=== PATIENT | female | born 1995 | race Asian ===

== ENCOUNTER 2016-11-15 16:05 | Emergency (ER) | payer OTHER ==
[~2016-11-15] VITALS: Ht 157.5 cm; Wt 43.5 kg
[~2016-11-15 16:05] MED LIST: LEVEMIR SC; NOVOLOG100 MG/ML SC
[2016-11-15] MEDS ORDERED: GABA300C2 PO (16:30)
[2016-11-15 17:46] LABS: PLATELET COUNT 322 K/uL (152-353)
[2016-11-15 17:49] LABS: POTASSIUM 2.9 mmol/L (3.6-5.2); SODIUM 138 mmol/L (136-145)
[2016-11-15 20:49] VITALS: BP 85/58; TEMP 98.4
== END 2016-11-15 20:53 | disposition home or self-care (01) ==
LOC: ED 16:05
PROVIDERS: Specialist
DX: E87.6 Hypokalemia (principal); E83.42 Hypomagnesemia; R42 Dizziness and giddiness; R11.10 Vomiting, unspecified; H54.40 Blindness, one eye, unspecified eye
CPT/HCPCS: 36415; 80053; 80307; 81000; 83735; 85027; 96365; 99284; G0479; J2550; J3475

== ENCOUNTER 2017-02-02 02:26 | Emergency (ER) | payer OTHER ==
[~2017-02-02] VITALS: Ht 157.5 cm; Wt 40.8 kg
[~2017-02-02 02:26] MED LIST changes: +GABA300C2 PO
[2017-02-02 02:30] VITALS: BP 101/77; TEMP 98.6
== END 2017-02-02 02:50 | disposition home or self-care (01) ==
LOC: ED 02:26
DX: M54.5 Low back pain (principal)
CPT/HCPCS: 99281

== ENCOUNTER 2017-11-07 13:18 | Emergency (ER) | payer OTHER ==
[~2017-11-07] VITALS: Ht 154.9 cm; Wt 43.5 kg
[2017-11-07 13:49] VITALS: TEMP 98.1
[2017-11-07 16:44] VITALS: BP 110/78
== END 2017-11-07 16:44 | disposition home or self-care (01) ==
LOC: ED 13:18
DX: M54.2 Cervicalgia (principal); S16.1XXA Strain of muscle, fascia and tendon at neck level, initial encounter; V43.12XA Car passenger injured in collision with other type car in nontraffic accident, initial encounter; Y92.89 Other specified places as the place of occurrence of the external cause
CPT/HCPCS: 99283

== ENCOUNTER 2017-11-29 09:44 | Outpatient (CLI) | payer OTHER | END 2017-11-29 09:48 | disposition short-term general hospital (02) | LOC: AMB 09:44 | DX: E11.649 Type 2 diabetes mellitus with hypoglycemia without coma (principal) | CPT/HCPCS: A0425; A0427 ==

== ENCOUNTER 2017-11-29 09:48 | Emergency (ER) | payer OTHER ==
[~2017-11-29] VITALS: Ht 154.9 cm; Wt 43.5 kg
[2017-11-29 10:20] LABS: PLATELET COUNT 315 K/uL (152-353)
[2017-11-29 10:48] LABS: POTASSIUM 3.4 mmol/L (3.6-5.2)
[2017-11-29 11:30] VITALS: BP 118/72
== END 2017-11-29 11:58 | disposition home or self-care (01) ==
LOC: ED 09:52
PROVIDERS: Family Medicine
DX: E11.649 Type 2 diabetes mellitus with hypoglycemia without coma (principal)
CPT/HCPCS: 80053; 81000; 82962; 85027; 96365; 99284

== ENCOUNTER 2018-07-06 01:02 | Emergency (ER) | payer OTHER ==
[~2018-07-06] VITALS: Ht 154.9 cm; Wt 52.2 kg
[2018-07-06 01:16] VITALS: BP 130/81; TEMP 98.7
== END 2018-07-06 02:00 | disposition home or self-care (01) ==
LOC: ED 01:02
DX: M54.89 Other dorsalgia (principal); R10.9 Unspecified abdominal pain
CPT/HCPCS: 99281

== ENCOUNTER 2018-11-02 07:34 | Outpatient (CLI) | payer OTHER | END 2018-11-02 07:40 | disposition short-term general hospital (02) | LOC: AMB 07:34 | DX: E11.649 Type 2 diabetes mellitus with hypoglycemia without coma (principal); Z79.4 Long term (current) use of insulin | CPT/HCPCS: A0425; A0427 ==

== ENCOUNTER 2018-11-02 07:41 | Emergency (ER) | payer OTHER ==
[~2018-11-02] VITALS: Ht 154.9 cm; Wt 55.3 kg
[2018-11-02 07:41] VITALS: TEMP 97
[2018-11-02 08:28] LABS: POTASSIUM 3.9 mmol/L (3.6-5.2)
[2018-11-02 08:30] LABS: PLATELET COUNT 321 K/uL (152-353)
[2018-11-02 09:29] VITALS: BP 128/82
== END 2018-11-02 09:29 | disposition home or self-care (01) ==
LOC: ED 07:42
PROVIDERS: Emergency Medicine
DX: E11.649 Type 2 diabetes mellitus with hypoglycemia without coma (principal); Z79.4 Long term (current) use of insulin
CPT/HCPCS: 80053; 81000; 82962; 83036; 85027; 87077; 87086; 87088; 87186; 99283

== ENCOUNTER 2018-11-17 10:36 | Outpatient (CLI) | payer OTHER | END 2018-11-17 10:40 | disposition short-term general hospital (02) | LOC: AMB 10:36 | DX: R41.82 Altered mental status, unspecified (principal); E11.649 Type 2 diabetes mellitus with hypoglycemia without coma | CPT/HCPCS: A0425; A0427 ==

== ENCOUNTER 2018-11-17 10:49 | Emergency (ER) | payer OTHER ==
[~2018-11-17] VITALS: Ht 154.9 cm; Wt 55.3 kg
[2018-11-17 10:50] VITALS: TEMP 97.7
[2018-11-17 11:31] LABS: PLATELET COUNT 270 K/uL (152-353)
[2018-11-17 11:47] LABS: POTASSIUM 3.8 mmol/L (3.6-5.2)
[2018-11-17 13:05] VITALS: BP 112/76
== END 2018-11-17 13:10 | disposition home or self-care (01) ==
LOC: ED 10:49
PROVIDERS: Family Medicine
DX: E11.649 Type 2 diabetes mellitus with hypoglycemia without coma (principal)
CPT/HCPCS: 80053; 80307; 81000; 85027; 99283

== ENCOUNTER 2018-12-13 08:05 | Emergency (ER) | payer OTHER ==
[~2018-12-13] VITALS: Ht 154.9 cm; Wt 55.3 kg
[2018-12-13 08:10] VITALS: TEMP 97.5
[2018-12-13 08:57] LABS: POTASSIUM 3.5 mmol/L (3.6-5.2)
[2018-12-13 09:05] LABS: PLATELET COUNT 290 K/uL (152-353)
[2018-12-13 10:23] VITALS: BP 128/62
== END 2018-12-13 10:23 | disposition home or self-care (01) ==
LOC: ED 08:05
PROVIDERS: Emergency Medicine
DX: E11.649 Type 2 diabetes mellitus with hypoglycemia without coma (principal); Z79.4 Long term (current) use of insulin
CPT/HCPCS: 36415; 80053; 85027; 96374; 99284; J7060

== ENCOUNTER 2018-12-25 09:16 | Outpatient (CLI) | payer OTHER | END 2018-12-25 09:19 | disposition short-term general hospital (02) | LOC: AMB 09:16 | DX: R41.82 Altered mental status, unspecified (principal); E11.649 Type 2 diabetes mellitus with hypoglycemia without coma | CPT/HCPCS: A0425; A0427 ==

== ENCOUNTER 2018-12-25 09:27 | Emergency (ER) | payer OTHER ==
[~2018-12-25] VITALS: Ht 154.9 cm; Wt 55.3 kg
[2018-12-25 10:36] LABS: PLATELET COUNT 243 K/uL (152-353)
[2018-12-25 10:42] LABS: SODIUM 135 mmol/L (136-145)
[2018-12-25 13:00] VITALS: BP 105/80; TEMP 98
== END 2018-12-25 13:25 | disposition home or self-care (01) ==
LOC: ED 09:27
PROVIDERS: Emergency Medicine
DX: E11.649 Type 2 diabetes mellitus with hypoglycemia without coma (principal); Z79.4 Long term (current) use of insulin
CPT/HCPCS: 80053; 80307; 81000; 81025; 82962; 83735; 84484; 85027; 96365; 96375; 99284; J7060

== ENCOUNTER 2019-01-28 07:10 | Emergency (ER) | payer OTHER ==
[~2019-01-28] VITALS: Ht 154.9 cm; Wt 56.7 kg
[2019-01-28 07:31] VITALS: TEMP 98.7
[2019-01-28 07:45] LABS: PLATELET COUNT 278 K/uL (152-353)
[2019-01-28 07:58] LABS: POTASSIUM 4.5 mmol/L (3.6-5.2)
[2019-01-28 09:20] VITALS: BP 132/84
== END 2019-01-28 09:20 | disposition home or self-care (01) ==
LOC: ED 07:10
PROVIDERS: Family Medicine
DX: R11.2 Nausea with vomiting, unspecified (principal); R19.7 Diarrhea, unspecified; E11.65 Type 2 diabetes mellitus with hyperglycemia
CPT/HCPCS: 80053; 81000; 81002; 81025; 82150; 83690; 85027; 87502; 96360; 96361; 96374; 96375; 99284; J1815; J2405

== ENCOUNTER 2019-04-12 21:54 | Observation (INO) | payer OTHER ==
[~2019-04-12] VITALS: Ht 154.9 cm; Wt 50.8 kg
[2019-04-12 22:35] VITALS: BP 158/96; TEMP 97.7
[2019-04-12 22:46] LABS: PLATELET COUNT 260 K/uL (152-353)
[2019-04-12 22:56] LABS: POTASSIUM 3.6 mmol/L (3.6-5.2)
[2019-04-13 01:00] VITALS: BP 98/66; TEMP 98.3; Ht 154.9 cm; Wt 50.8 kg
[2019-04-13 03:55] VITALS: BP 85/37; TEMP 99.1
[2019-04-13 08:00] VITALS: BP 93/51; TEMP 98
[2019-04-13 08:39] LABS: POTASSIUM 3.3 mmol/L (3.6-5.2)
--- NOTE | 2019-04-13 10:45 | NUR ---
REC'D ORDER FROM DR. MCCRACKEN TO REMOVE PT LUCIANO CATHETER. CHANTELLE, PCT INTO REMOVED PT'S CATHETER. PT TOLERATED WELL WITHOUT DIFFICULTY.
[2019-04-13 12:00] VITALS: BP 99/52; TEMP 98.4
[2019-04-13 16:00] VITALS: BP 118/78
[2019-04-13] MEDS ORDERED: CELEXA40 MG PO (16:18)
[2019-04-13] MEDS ORDERED: GABA300C2 PO (16:19)
[2019-04-13] MEDS ORDERED: TRESIBA FL100 UNIT/M SC (16:19)
[2019-04-13] MEDS ORDERED: INSU100P SC (16:21)
[2019-04-13] MEDS ORDERED: ATOR20TA2 PO (17:03)
[2019-04-13] MEDS ORDERED: LEVAQUIN 500MG TAB PO (17:04)
[2019-04-13] MEDS ORDERED: LISI5TAB10 PO (17:04)
[2019-04-13] MEDS ORDERED: AZIT250T3 PO (17:04)
[2019-04-13] MEDS ORDERED: Flonase Nasal Inhale NAS (17:05)
--- NOTE | 2019-04-13 17:45 | NUR ---
PT IV DC'D TIP INTACT NO REDNESS OR SWELLING NOTED. PT TOELRATED WELL. PT GIVEN DISCHARGE INSTRUCTIONS. PT INSTRUCTED TO COMPLETE ANTIBIOTICS UNTIL GONE. PT INSTRUCTED TO CHECK BLOOD PRESSURE PRIOR TO TAKING LISINOPRIL. PT VERBALIZED UNDERSTANDING. PT INSTRUCTED TO MONITOR BLOOD SUGAR DAILY. PT INSTRUCTED TO CALL PCP ON TUESDAY TO SCHEDULE FOLLOW UP. PT VERBALIZED UNDERSTADING. PT DISCHARGED VIA W/C ACCOMPANIED BY FAMILY AND PCT. NAD NOTED
== END 2019-04-13 18:00 | disposition home or self-care (01) ==
LOC: ED 21:54 → MED/SURG 04-13 00:11
PROVIDERS: Internal Medicine; ADMIT Hospitalist
DX: E10.65 Type 1 diabetes mellitus with hyperglycemia (principal); Z79.4 Long term (current) use of insulin; E10.43 Type 1 diabetes mellitus with diabetic autonomic (poly)neuropathy; K31.84 Gastroparesis; E10.40 Type 1 diabetes mellitus with diabetic neuropathy, unspecified; J06.9 Acute upper respiratory infection, unspecified; N39.0 Urinary tract infection, site not specified; J20.9 Acute bronchitis, unspecified
CPT/HCPCS: 36415; 36600; 51702; 80053; 80307; 80320; 81000; 81002; 81025; 82150; 82805; 83690; 85027; 87040; 87077; 87086; 87088; 87186; 87502; 87651; 96360; 96365; 96366; 96375; 99220; 99284; G0378; J0456; J0696; J1650; J1815; J1885; J2405; J2765; J3490

== ENCOUNTER 2019-12-13 10:44 | Emergency (ER) | payer OTHER ==
[~2019-12-13] VITALS: Ht 154.9 cm; Wt 59.0 kg
[~2019-12-13 10:44] MED LIST changes: +ATOR20TA2 PO; +AZIT250T3 PO; +CELEXA40 MG PO; +Flonase Nasal Inhale NAS; +INSU100P SC; +LEVAQUIN 500MG TAB PO; +LISI5TAB10 PO; +TRESIBA FL100 UNIT/M SC
[2019-12-13 11:27] LABS: POTASSIUM 4.2 mmol/L (3.6-5.2); SODIUM 135 mmol/L (136-145)
[2019-12-13 11:42] LABS: PARTIAL THROMBOPLASTIN TIME 25.2 SECONDS (24.5-33.6)
[2019-12-13 11:44] LABS: PLATELET COUNT 319 K/uL (152-353)
[2019-12-13 12:15] VITALS: BP 118/81; TEMP 98
== END 2019-12-13 12:15 | disposition home or self-care (01) ==
LOC: ED 10:48
PROVIDERS: Hospitalist
DX: E11.649 Type 2 diabetes mellitus with hypoglycemia without coma (principal); Z79.4 Long term (current) use of insulin
CPT/HCPCS: 80053; 80307; 80320; 81000; 81025; 82550; 82962; 83880; 84484; 85027; 85610; 85730; 93005; 96360; 96375; 99284; J7060

== ENCOUNTER 2019-12-27 13:30 | Emergency (ER) | payer OTHER ==
[~2019-12-27] VITALS: Ht 154.9 cm; Wt 59.0 kg
[2019-12-27 14:23] LABS: PLATELET COUNT 261 K/uL (152-353)
[2019-12-27 14:35] LABS: POTASSIUM 3.9 mmol/L (3.6-5.2)
[2019-12-27 15:30] VITALS: BP 123/78
== END 2019-12-27 15:30 | disposition home or self-care (01) ==
LOC: ED 13:44
PROVIDERS: Emergency Medicine Emergency Medical Services
DX: E11.649 Type 2 diabetes mellitus with hypoglycemia without coma (principal); Z79.4 Long term (current) use of insulin
CPT/HCPCS: 80053; 83690; 85027; 96374; 99284; J7060

== ENCOUNTER 2020-01-05 11:56 | Emergency (ER) | payer OTHER ==
[~2020-01-05] VITALS: Ht 154.9 cm; Wt 59.0 kg
[2020-01-05 12:17] LABS: PLATELET COUNT 305 K/uL (152-353)
[2020-01-05 12:30] LABS: PARTIAL THROMBOPLASTIN TIME 27.6 SECONDS (24.5-33.6)
[2020-01-05 12:32] LABS: POTASSIUM 3.4 mmol/L (3.6-5.2); SODIUM 142 mmol/L (136-145)
[2020-01-05 14:15] VITALS: BP 126/80; TEMP 98
== END 2020-01-05 14:20 | disposition home or self-care (01) ==
LOC: ED 11:56
PROVIDERS: Hospitalist
DX: E11.649 Type 2 diabetes mellitus with hypoglycemia without coma (principal); Z79.4 Long term (current) use of insulin; N39.0 Urinary tract infection, site not specified
CPT/HCPCS: 80053; 80320; 81000; 81025; 82550; 82553; 84484; 85007; 85027; 85610; 85730; 93005; 96360; 96365; 96374; 96375; 99284; J0696; J1200; J2765

== ENCOUNTER 2020-01-16 22:58 | Emergency (ER) | payer OTHER ==
[~2020-01-16] VITALS: Ht 154.9 cm; Wt 56.7 kg
[2020-01-16 23:12] VITALS: BP 132/94; TEMP 97.7
== END 2020-01-17 01:40 | disposition still patient (30) ==
LOC: ED 22:58
DX: R10.84 Generalized abdominal pain (principal); E11.43 Type 2 diabetes mellitus with diabetic autonomic (poly)neuropathy; Z79.4 Long term (current) use of insulin; K31.84 Gastroparesis; R11.2 Nausea with vomiting, unspecified; R19.7 Diarrhea, unspecified
CPT/HCPCS: 36415; 80053; 80320; 81000; 81025; 82150; 83690; 85027; 87077; 87086; 87088; 87186; 96360; 96365; 96366; 96375; 99284; J1956; J2765

== ENCOUNTER 2020-08-30 14:52 | Outpatient (CLI) | payer OTHER ==
[2020-08-30 15:21] LABS: PLATELET COUNT 297 K/uL (152-353)
[2020-08-30 15:30] LABS: POTASSIUM 4.6 mmol/L (3.6-5.2)
== END 2020-08-30 20:12 | disposition home or self-care (01) ==
LOC: LABW 14:52
PROVIDERS: ATTEND Internal Medicine Endocrinology, Diabetes & Metabolism
DX: Z00.00 Encounter for general adult medical examination without abnormal findings (principal); E11.65 Type 2 diabetes mellitus with hyperglycemia; R53.83 Other fatigue; R53.81 Other malaise; Z79.899 Other long term (current) drug therapy
CPT/HCPCS: 36415; 80053; 80061; 82306; 82607; 83036; 83525; 84681; 85027

== ENCOUNTER 2020-09-24 08:11 | Outpatient (CLI) | payer OTHER ==
[~2020-09-24] VITALS: Ht 154.9 cm; Wt 55.8 kg
== END 2020-09-24 23:33 | disposition home or self-care (01) ==
LOC: DIABINF 08:11
PROVIDERS: ATTEND Internal Medicine Endocrinology, Diabetes & Metabolism
DX: E10.65 Type 1 diabetes mellitus with hyperglycemia (principal); E10.43 Type 1 diabetes mellitus with diabetic autonomic (poly)neuropathy; K31.84 Gastroparesis; F41.8 Other specified anxiety disorders; F32.89 Other specified depressive episodes; H35.00 Unspecified background retinopathy; H54.61 Unqualified visual loss, right eye, normal vision left eye; K21.9 Gastro-esophageal reflux disease without esophagitis
CPT/HCPCS: 82948; 96365; 96521; J1815; J1817; J7060

== ENCOUNTER 2020-09-25 08:07 | Outpatient (CLI) | payer OTHER ==
[~2020-09-25] VITALS: Ht 154.9 cm; Wt 55.8 kg
== END 2020-09-25 20:21 | disposition home or self-care (01) ==
LOC: DIABINF 08:07
PROVIDERS: ATTEND Internal Medicine Endocrinology, Diabetes & Metabolism
DX: E10.65 Type 1 diabetes mellitus with hyperglycemia (principal); K31.84 Gastroparesis; F41.8 Other specified anxiety disorders; F32.89 Other specified depressive episodes; H35.00 Unspecified background retinopathy; H54.61 Unqualified visual loss, right eye, normal vision left eye; K21.9 Gastro-esophageal reflux disease without esophagitis
CPT/HCPCS: 82948; 96365; 96366; 96521; J1815; J1817

== ENCOUNTER 2020-10-01 08:27 | Outpatient (CLI) | payer OTHER ==
[~2020-10-01] VITALS: Ht 154.9 cm; Wt 55.8 kg
== END 2020-10-01 18:54 | disposition home or self-care (01) ==
LOC: DIABINF 08:27
PROVIDERS: ATTEND Nurse Practitioner
DX: E10.65 Type 1 diabetes mellitus with hyperglycemia (principal); E10.43 Type 1 diabetes mellitus with diabetic autonomic (poly)neuropathy; K31.84 Gastroparesis; F41.8 Other specified anxiety disorders; F32.89 Other specified depressive episodes; H35.00 Unspecified background retinopathy; H54.61 Unqualified visual loss, right eye, normal vision left eye; K21.9 Gastro-esophageal reflux disease without esophagitis
CPT/HCPCS: 82948; 96365; 96521; J1815; J1817

== ENCOUNTER 2020-10-02 08:03 | Outpatient (CLI) | payer OTHER ==
[~2020-10-02] VITALS: Ht 154.9 cm; Wt 55.8 kg
== END 2020-10-02 22:33 | disposition home or self-care (01) ==
LOC: DIABINF 08:03
PROVIDERS: ATTEND Nurse Practitioner
DX: E10.65 Type 1 diabetes mellitus with hyperglycemia (principal); E10.43 Type 1 diabetes mellitus with diabetic autonomic (poly)neuropathy; K31.84 Gastroparesis; F41.8 Other specified anxiety disorders; F32.89 Other specified depressive episodes; H35.00 Unspecified background retinopathy; H54.61 Unqualified visual loss, right eye, normal vision left eye; K21.9 Gastro-esophageal reflux disease without esophagitis
CPT/HCPCS: 82948; 96365; 96366; 96521; J1815; J1817

== ENCOUNTER 2020-10-08 08:53 | Outpatient (CLI) | payer OTHER ==
[~2020-10-08] VITALS: Ht 154.9 cm; Wt 55.8 kg
== END 2020-10-08 21:08 | disposition home or self-care (01) ==
LOC: DIABINF 08:53
PROVIDERS: ATTEND Nurse Practitioner
DX: E10.65 Type 1 diabetes mellitus with hyperglycemia (principal); E10.43 Type 1 diabetes mellitus with diabetic autonomic (poly)neuropathy; K31.84 Gastroparesis; F41.8 Other specified anxiety disorders; F32.89 Other specified depressive episodes; H35.00 Unspecified background retinopathy; H54.61 Unqualified visual loss, right eye, normal vision left eye; K21.9 Gastro-esophageal reflux disease without esophagitis
CPT/HCPCS: 82948; 96365; 96366; 96521; J1815; J1817

== ENCOUNTER 2020-10-09 08:14 | Outpatient (CLI) | payer OTHER ==
[~2020-10-09] VITALS: Ht 154.9 cm; Wt 55.8 kg
== END 2020-10-09 19:34 | disposition home or self-care (01) ==
LOC: DIABINF 08:14
PROVIDERS: ATTEND Nurse Practitioner
DX: E10.65 Type 1 diabetes mellitus with hyperglycemia (principal); E10.43 Type 1 diabetes mellitus with diabetic autonomic (poly)neuropathy; K31.84 Gastroparesis; F41.8 Other specified anxiety disorders; F32.89 Other specified depressive episodes; H35.00 Unspecified background retinopathy; H54.61 Unqualified visual loss, right eye, normal vision left eye; K21.9 Gastro-esophageal reflux disease without esophagitis
CPT/HCPCS: 82948; 96365; 96366; 96521; J1815; J1817

== ENCOUNTER 2020-10-15 08:07 | Outpatient (CLI) | payer OTHER | END 2020-10-15 19:04 | disposition home or self-care (01) | LOC: DIABINF 08:07 | PROVIDERS: ATTEND Nurse Practitioner | DX: E10.65 Type 1 diabetes mellitus with hyperglycemia (principal); K31.84 Gastroparesis; F41.8 Other specified anxiety disorders; F32.89 Other specified depressive episodes; H35.00 Unspecified background retinopathy; H54.61 Unqualified visual loss, right eye, normal vision left eye; K21.9 Gastro-esophageal reflux disease without esophagitis | CPT/HCPCS: 82948; 96365; 96366; 96521; J1817 ==

== ENCOUNTER 2020-10-16 09:09 | Outpatient (CLI) | payer OTHER ==
[~2020-10-16] VITALS: Ht 154.9 cm; Wt 55.8 kg
== END 2020-10-16 20:08 | disposition home or self-care (01) ==
LOC: DIABINF 09:09
PROVIDERS: ATTEND Nurse Practitioner
DX: E10.65 Type 1 diabetes mellitus with hyperglycemia (principal); E10.43 Type 1 diabetes mellitus with diabetic autonomic (poly)neuropathy; K31.84 Gastroparesis; F41.8 Other specified anxiety disorders; F32.89 Other specified depressive episodes; H35.00 Unspecified background retinopathy; H54.61 Unqualified visual loss, right eye, normal vision left eye; K21.9 Gastro-esophageal reflux disease without esophagitis
CPT/HCPCS: J1815

== ENCOUNTER 2020-10-16 10:03 | Emergency (ER) | payer OTHER ==
[~2020-10-16] VITALS: Ht 154.9 cm; Wt 55.8 kg
[2020-10-16 10:48] LABS: PLATELET COUNT 281 K/uL (152-353)
[2020-10-16 11:02] LABS: POTASSIUM 4.6 mmol/L (3.6-5.2); SODIUM 126 mmol/L (136-145)
[2020-10-16 14:45] LABS: POTASSIUM 5.2 mmol/L (3.6-5.2)
[2020-10-16 18:20] VITALS: BP 109/71; TEMP 98
== END 2020-10-16 18:20 | disposition home or self-care (01) ==
LOC: ED 10:03
PROVIDERS: Emergency Medicine Emergency Medical Services
DX: E10.65 Type 1 diabetes mellitus with hyperglycemia (principal); Z79.4 Long term (current) use of insulin; N39.0 Urinary tract infection, site not specified
CPT/HCPCS: 80048; 80053; 81000; 81002; 81025; 82948; 83735; 84484; 85027; 87040; 87077; 87086; 87088; 87186; 93005; 96360; 96361; 96365; 96375; 96376; 99284; J1815; J1956

== ENCOUNTER 2020-12-19 00:32 | Emergency (ER) | payer OTHER ==
[~2020-12-19] VITALS: Ht 154.9 cm; Wt 55.8 kg
[2020-12-19] MEDS ORDERED: NEURONTIN 100M100 MG PO (00:57)
[2020-12-19 01:33] VITALS: BP 136/97; TEMP 98.1
== END 2020-12-19 01:40 | disposition home or self-care (01) ==
LOC: ED 00:32
DX: R30.0 Dysuria (principal); E11.65 Type 2 diabetes mellitus with hyperglycemia; Z79.4 Long term (current) use of insulin
CPT/HCPCS: 81000; 99282

== ENCOUNTER 2021-03-11 19:45 | Emergency (ER) | payer OTHER ==
[~2021-03-11] VITALS: Ht 154.9 cm; Wt 55.8 kg
[~2021-03-11 19:45] MED LIST changes: +NEURONTIN 100M100 MG PO
[2021-03-11 21:00] VITALS: BP 141/85; TEMP 98.36
== END 2021-03-11 21:00 | disposition home or self-care (01) ==
LOC: ED 19:45
DX: Z20.822 Contact with and (suspected) exposure to COVID-19 (principal)
CPT/HCPCS: 87635; 99282; U0003

== ENCOUNTER 2021-06-12 05:51 | Emergency (ER) | payer OTHER ==
[~2021-06-12] VITALS: Ht 154.9 cm; Wt 55.8 kg
[2021-06-12 05:51] VITALS: TEMP 96.8
[2021-06-12 06:57] LABS: PLATELET COUNT 327 K/uL (152-353)
[2021-06-12 07:18] LABS: POTASSIUM 4.4 mmol/L (3.6-5.2)
[2021-06-12 08:39] VITALS: BP 134/84
== END 2021-06-12 08:41 | disposition home or self-care (01) ==
LOC: ED 05:51
PROVIDERS: Emergency Medicine
DX: E11.649 Type 2 diabetes mellitus with hypoglycemia without coma (principal); Z79.4 Long term (current) use of insulin
CPT/HCPCS: 80048; 82948; 85027; 99283

== ENCOUNTER 2021-06-25 10:18 | Outpatient (CLI) | payer OTHER | END 2021-06-25 19:29 | disposition home or self-care (01) | LOC: LABW 10:18 | PROVIDERS: ATTEND Nurse Practitioner Family | DX: I10 Essential (primary) hypertension (principal) | CPT/HCPCS: 82043; 82570 ==